=== PATIENT | male | born 2000 | race Caucasian/White ===

== ENCOUNTER 2018-03-06 08:28 | Day surgery (SDC) | payer OTHER ==
[~2018-03-06] VITALS: Ht 170.2 cm; Wt 65.8 kg
[2018-03-06] MEDS ORDERED: [UNRECOGNIZED DRUG - CODE] PO (09:34)
[2018-03-06] MEDS ORDERED: KETOROLAC 30 MG/ML VIAL ONE (10:47)
[2018-03-06] MEDS ORDERED: LIDOCAINE 2% 100 MG/5 ML UJET TP ONE (10:47)
== END 2018-03-06 12:03 | disposition home or self-care (01) ==
LOC: MMU 08:28 → MDS 08:28
PROVIDERS: ATTEND Internal Medicine Gastroenterology
DX: D01.3 Carcinoma in situ of anus and anal canal (principal); K21.9 Gastro-esophageal reflux disease without esophagitis; F41.9 Anxiety disorder, unspecified; F17.210 Nicotine dependence, cigarettes, uncomplicated; Z21 Asymptomatic human immunodeficiency virus [HIV] infection status; Z79.899 Other long term (current) drug therapy; Z98.890 Other specified postprocedural states
CPT/HCPCS: 45331; 88305; 88313; 88342; J1885